=== PATIENT | male | born 1995 | race African-American/Black ===

== ENCOUNTER 2017-08-26 11:15 | Outpatient (CLI) | payer BC ==
--- NOTE | 2017-08-26 15:27 | Ultrasound Report ---
RENAL ULTRASOUND: 08/26/17 CLINICAL: 22-year-old male with hematuria. FINDINGS: High resolution ultrasound demonstrated physiologic distention of the renal collecting systems. Normal size, contour and echogenicity of the kidneys. No renal mass, cyst or calculus. The right kidney measures 11.1 x 5.5 x 5.2-cm. The renal parenchyma measures 1.7-cm in thickness. The left kidney measures 10.6 x 5.2 x 4.8-cm. The renal parenchyma measures 1.4-cm in thickness. A moderately distended and normal urinary bladder.No apparent prostate enlargement. IMPRESSION: Normal kidneys.
== END 2017-08-26 11:16 | disposition home or self-care (01) ==
LOC: SPVWC 11:15
PROVIDERS: ATTEND Family Medicine
DX: R31.9 Hematuria, unspecified (principal)
CPT/HCPCS: 76770

== ENCOUNTER 2018-08-07 13:10 | Outpatient (CLI) | payer BC ==
[2018-08-07 13:40] LABS: Basophils % (Auto) 0.5 % (0.0-1.8); Eosinophils # (Auto) 0.2 K/mm3 (0.0-0.4); Eosinophils % (Auto) 3.5 % (0.0-4.3); Hematocrit 47.8 % (35.5-45.6); Hemoglobin 15.9 gm/dl (11.8-15.2); Lymphocytes # (Auto) 3.3 K/mm3 (1.2-5.4); Lymphocytes % (Auto) 47.3 % (13.4-35.0); Mean Corpuscular HGB Conc 33 % (32-34); Mean Corpuscular Volume 85 fl (84-94); Monocytes # (Auto) 0.6 K/mm3 (0.0-0.8); Monocytes % (Auto) 8.3 % (0.0-7.3); Platelet Count 246 K/mm3 (140-440); Red Cell Distribution Width 13.7 % (13.2-15.2)
[2018-08-07 13:51] LABS: Creatinine,Urine 218.9 mg/dL (0.1-20.0)
[2018-08-07 13:55] LABS: Bilirubin,Urine NEG (Negative); Blood,Urine MOD (Negative); Color,Urine Yellow (Yellow); Mucus,Urine FEW /HPF; Protein,Urine <15 mg/dL mg/dL (Negative); Urobilinogen,Urine < 2.0 mg/dL (<2.0)
[2018-08-07 13:58] LABS: Alanine Aminotransferase 13 units/L (7-56); Albumin 4.7 g/dL (3.9-5); BUN/Creatinine Ratio 13; Blood Urea Nitrogen 13 mg/dL (9-20); Calcium 9.5 mg/dL (8.4-10.2); Chol/HDL Ratio 3.23 %; HDL Cholesterol 55 mg/dL (40-59); Hemolysis Index 5; LDL Cholesterol,Direct 118 mg/dL (50-130); Uric Acid 5.5 mg/dL (3.5-7.6)
[2018-08-07 14:01] LABS: Microalbumin/Creatinine Ratio 5.4 ug/mg
[2018-08-11 11:19] LABS: Vitamin D, 25-OH, D2 <4 ng/mL
== END 2018-08-07 13:11 | disposition home or self-care (01) ==
LOC: LAB 13:10
PROVIDERS: ATTEND Family Medicine
DX: Z00.01 Encounter for general adult medical examination with abnormal findings (principal)
CPT/HCPCS: 36415; 80053; 80061; 81001; 82043; 82306; 83036; 84443; 84550; 85025; 86140

== ENCOUNTER 2019-02-13 08:50 | Outpatient (CLI) | payer BC ==
[2019-02-13 09:38] LABS: Bilirubin,Urine NEG (Negative); Blood,Urine MOD (Negative); Color,Urine Yellow (Yellow); Protein,Urine <15 mg/dL mg/dL (Negative); Urobilinogen,Urine < 2.0 mg/dL (<2.0); WBC,Urine < 1.0 /HPF (0.0-6.0)
[2019-02-13 09:53] LABS: Albumin 4.8 g/dL (3.9-5); BUN/Creatinine Ratio 26; Blood Urea Nitrogen 21 mg/dL (9-20); Calcium 10.3 mg/dL (8.4-10.2); Hemolysis Index 22
== END 2019-02-13 08:51 | disposition home or self-care (01) ==
LOC: LAB 08:50
PROVIDERS: ATTEND Family Medicine
DX: R80.9 Proteinuria, unspecified (principal)
CPT/HCPCS: 36415; 80048; 81001; 82040; 82043; 83735; 84100

== ENCOUNTER 2019-05-01 10:53 | Outpatient (CLI) | payer BC ==
[2019-05-01 11:43] LABS: Bilirubin,Urine NEG (Negative); Blood,Urine NEG (Negative); Color,Urine Yellow (Yellow); Mucus,Urine FEW /HPF; Protein,Urine <15 mg/dL mg/dL (Negative); Urobilinogen,Urine < 2.0 mg/dL (<2.0)
[2019-05-01 11:50] LABS: WBC,Urine < 1.0 /HPF (0.0-6.0)
[2019-05-01 11:57] LABS: Albumin 4.7 g/dL (3.9-5); BUN/Creatinine Ratio 20; Blood Urea Nitrogen 18 mg/dL (9-20); Calcium 9.7 mg/dL (8.4-10.2); Hemolysis Index 6; Uric Acid 6.1 mg/dL (3.5-7.6)
[2019-05-01 14:37] LABS: Creatinine,Urine 159.5 mg/dL (0.1-20.0)
== END 2019-05-01 10:54 | disposition home or self-care (01) ==
LOC: LAB 10:53
PROVIDERS: ATTEND Internal Medicine Nephrology
DX: R82.90 Unspecified abnormal findings in urine (principal)
CPT/HCPCS: 36415; 80048; 81001; 82040; 82565; 82570; 82575; 84100; 84156; 84550

== ENCOUNTER 2019-05-03 13:02 | Outpatient (CLI) | payer BC ==
[2019-05-03 14:02] LABS: Hepatitis B Surface Antigen Non-Reactive (Negative); Hepatitis C Virus Antibody Non-Reactive (NonReactive)
[2019-05-06 22:15] LABS: ANA Screen, IFA Positive (Negative)
[2019-05-07 14:11] LABS: Myeloperoxidase Antibody <1.0 AI (<1.0)
== END 2019-05-03 13:03 | disposition home or self-care (01) ==
LOC: LAB 13:02
PROVIDERS: ATTEND Internal Medicine Nephrology
DX: R82.90 Unspecified abnormal findings in urine (principal)
CPT/HCPCS: 36415; 80074; 86021; 86038

== ENCOUNTER 2019-08-08 09:28 | Outpatient (CLI) | payer BC ==
[2019-08-08 10:37] LABS: Blood Urea Nitrogen 19 mg/dL (9-20)
--- NOTE | 2019-08-08 11:57 | Cat Scan Report ---
CT of the abdomen and pelvis without and with contrast INDICATION: Hematuria COMPARISON: None FINDINGS: There are no renal or ureteral calculi. No stone fragments seen bladder. Postcontrast image s show bases. Liver, spleen, pancreas, adrenal glands and kidneys all appear normal. No definite gall bladder or biliary tree abnormality. No fluid or adenopathy upper abdomen. CT of the pelvis shows a prominent appendix without surrounding inflammation so this is likely a norm al variant. Prostate is not enlarged. Bladder is not filled with contrast but no gross bladder abnorm ality. No pelvic or inguinal adenopathy. No diverticulosis or diverticulitis. Large amount stool in c olon suggests constipation. IMPRESSION: Probable constipation. Otherwise negative study. Automated exposure control was utilized to diminish radiation dose. Signer Name: Harrison Campbell MD Signed: 08/08/2019 11:52 AM Workstation Name: [id number]
== END 2019-08-08 09:29 | disposition home or self-care (01) ==
LOC: CT 09:28
PROVIDERS: ATTEND Urology
DX: R31.29 Other microscopic hematuria (principal)
CPT/HCPCS: 36415; 74178; 82565; 84520; Q9967

== ENCOUNTER 2020-03-26 15:22 | Outpatient (CLI) | payer BC ==
[2020-03-26 16:19] LABS: Creatinine,Urine 218.1 mg/dL (0.1-20.0)
[2020-03-26 16:20] LABS: Bilirubin,Urine NEG (Negative); Blood,Urine MOD (Negative); Color,Urine Yellow (Yellow); Mucus,Urine FEW /HPF; Protein,Urine <15 mg/dL mg/dL (Negative); Urobilinogen,Urine < 2.0 mg/dL (<2.0)
[2020-03-26 16:21] LABS: Microalbumin/Creatinine Ratio 5.5 ug/mg
[2020-03-26 16:28] LABS: Basophils % (Auto) 0.2 % (0.0-1.8); Eosinophils # (Auto) 0.2 K/mm3 (0.0-0.4); Eosinophils % (Auto) 2.3 % (0.0-4.3); Hematocrit 47.8 % (35.5-45.6); Lymphocytes % (Auto) 43.6 % (13.4-35.0); Mean Corpuscular HGB Conc 33 % (32-34); Mean Corpuscular Volume 87 fl (84-94); Monocytes # (Auto) 0.6 K/mm3 (0.0-0.8); Monocytes % (Auto) 8.2 % (0.0-7.3); Platelet Count 234 K/mm3 (140-440); Red Blood Count 5.53 M/mm3 (3.65-5.03); Red Cell Distribution Width 13.9 % (13.2-15.2)
[2020-03-26 16:52] LABS: Alanine Aminotransferase 16 units/L (7-56); Albumin 4.8 g/dL (3.9-5); BUN/Creatinine Ratio 23; Blood Urea Nitrogen 18 mg/dL (9-20); Calcium 9.3 mg/dL (8.4-10.2); Chol/HDL Ratio 3.05 %; HDL Cholesterol 53 mg/dL (40-59); Hemolysis Index 4; LDL Cholesterol,Direct 111 mg/dL (50-130); Uric Acid 5.5 mg/dL (3.5-7.6)
[2020-03-26 17:11] LABS: Erythrocyte Sedimentation Rate 1 mm/Hr (0-20)
== END 2020-03-26 15:23 | disposition home or self-care (01) ==
LOC: LAB 15:22
PROVIDERS: ATTEND Family Medicine
DX: R53.83 Other fatigue (principal)
CPT/HCPCS: 36415; 80053; 80061; 81001; 82043; 82306; 82607; 82652; 82728; 82747; 83036; 83615; 84402; 84443; 84550; 85025; 85652; 86140

== ENCOUNTER 2020-11-17 09:23 | Outpatient (CLI) | payer BC ==
[2020-11-17 10:39] LABS: Basophils % (Auto) 0.3 % (0.0-1.8); Eosinophils # (Auto) 0.2 K/mm3 (0.0-0.4); Eosinophils % (Auto) 2.6 % (0.0-4.3); Hematocrit 44.4 % (35.5-45.6); Hemoglobin 15.1 gm/dl (11.8-15.2); Lymphocytes # (Auto) 3.6 K/mm3 (1.2-5.4); Lymphocytes % (Auto) 45.7 % (13.4-35.0); Mean Corpuscular HGB Conc 34 % (32-34); Mean Corpuscular Volume 85 fl (84-94); Monocytes # (Auto) 0.7 K/mm3 (0.0-0.8); Monocytes % (Auto) 8.6 % (0.0-7.3); Platelet Count 233 K/mm3 (140-440); Red Blood Count 5.21 M/mm3 (3.65-5.03); Red Cell Distribution Width 13.8 % (13.2-15.2)
[2020-11-17 10:59] LABS: Bilirubin,Urine NEG (Negative); Blood,Urine MOD (Negative); Color,Urine Yellow (Yellow); Mucus,Urine FEW /HPF; Protein,Urine <15 mg/dL mg/dL (Negative); Urobilinogen,Urine < 2.0 mg/dL (<2.0); WBC,Urine < 1.0 /HPF (0.0-6.0)
[2020-11-17 11:05] LABS: Alanine Aminotransferase 21 units/L (7-56); Albumin 4.5 g/dL (3.9-5); BUN/Creatinine Ratio 19; Blood Urea Nitrogen 17 mg/dL (9-20); Calcium 9.6 mg/dL (8.4-10.2); Chol/HDL Ratio 3.25 %; HDL Cholesterol 52 mg/dL (40-59); Hemolysis Index 7; Iron 129 ug/dL (49-181); LDL Cholesterol,Direct 106 mg/dL (50-130); Total Iron Binding Capacity 288 mcg/dL (250-450); Uric Acid 5.7 mg/dL (3.5-7.6)
[2020-11-17 11:09] LABS: Erythrocyte Sedimentation Rate 1 mm/Hr (0-20)
[2020-11-20 12:20] LABS: Vitamin D, 25-OH, D2 18 ng/mL
== END 2020-11-17 09:24 | disposition home or self-care (01) ==
LOC: LAB 09:23
PROVIDERS: ATTEND Family Medicine
DX: R31.9 Hematuria, unspecified (principal); Z00.00 Encounter for general adult medical examination without abnormal findings; E29.1 Testicular hypofunction
CPT/HCPCS: 36415; 80053; 80061; 81001; 82306; 82550; 82607; 82728; 82747; 83036; 83550; 83615; 83735; 84100; 84436; 84439; 84443; 84550; 85025; 85652; 86140

== ENCOUNTER → 2021-02-03 | Outpatient (CLI) | payer BC | END | disposition home or self-care (01) | LOC: SLR 11:00 | PROVIDERS: ATTEND Internal Medicine | DX: G47.30 Sleep apnea, unspecified (principal) | CPT/HCPCS: G0399 ==

== ENCOUNTER 2021-04-17 14:58 | Outpatient (CLI) | payer BC ==
[2021-04-17 15:52] LABS: Hematocrit 45.6 % (35.5-45.6); Hemoglobin 15.6 gm/dl (11.8-15.2); Mean Corpuscular HGB Conc 34 % (32-34); Mean Corpuscular Volume 83 fl (84-94); Platelet Count 257 K/mm3 (140-440); Red Blood Count 5.46 M/mm3 (3.65-5.03)
[2021-04-17 15:58] LABS: Bilirubin,Urine NEG (Negative); Blood,Urine MOD (Negative); Color,Urine Yellow (Yellow); Mucus,Urine FEW /HPF; Protein,Urine <15 mg/dL mg/dL (Negative); Urobilinogen,Urine < 2.0 mg/dL (<2.0)
[2021-04-17 16:15] LABS: Alanine Aminotransferase 13 units/L (7-56); Albumin 4.9 g/dL (3.9-5); BUN/Creatinine Ratio 18; Blood Urea Nitrogen 16 mg/dL (9-20); Calcium 9.8 mg/dL (8.4-10.2); Chol/HDL Ratio 3.43 %; HDL Cholesterol 55 mg/dL (40-59); Hemolysis Index 2; Iron 112 ug/dL (49-181); LDL Cholesterol,Direct 124 mg/dL (50-130); Total Iron Binding Capacity 277 mcg/dL (250-450)
== END 2021-04-17 14:59 | disposition home or self-care (01) ==
LOC: LAB 14:58
PROVIDERS: ATTEND Internal Medicine
DX: R31.9 Hematuria, unspecified (principal); R53.83 Other fatigue
CPT/HCPCS: 36415; 80053; 80061; 81001; 82306; 82550; 83036; 83550; 84402; 84439; 84443; 84481; 85027